=== PATIENT | male | born 1960 | race Caucasian/White ===

== ENCOUNTER 2019-04-06 07:06 | Day surgery (SDC) | payer BC ==
[2019-04-06] MEDS ORDERED: Propofol 200 MG/20 ML SDV IV ONE (07:07)
[2019-04-06] MEDS ORDERED: Midazolam 1 MG/ML 2 ML SDV IV ONE (07:07)
[2019-04-06] MEDS ORDERED: Lactated Ringers 1,000 ML IV SCH (07:15)
--- NOTE | 2019-04-06 08:29 | PCM.SN ---
- Free Text/Narrative Note: pt examined and chart reviewed. There is non change to the H+P.
--- NOTE | 2019-04-06 09:01 | PCM.OPNOTE ---
- General Post-Op/Procedure Note Date of Surgery/Procedure: 04/06/19 Operative Procedure(s): c scope Findings: nl exam Pre Op Diagnosis: personal hx of colon polyps Post-Op Diagnosis: Same Anesthesia Technique: MAC Primary Surgeon: Macario Deleon Anesthesia Provider: Mariela Greene ([facility] CRNAS) Pathology: none Complications: None Condition: Good Free Text/Narrative:: see dictation
--- NOTE | 2019-04-06 16:20 | OR ---
DATE OF OPERATION: 04/06/2019 SURGEON: Macario Deleon MD PROCEDURE PERFORMED: Colonoscopy. PREOPERATIVE DIAGNOSIS: Personal history of colon polyps. POSTOPERATIVE DIAGNOSIS: Normal exam. INDICATIONS FOR PROCEDURE: This is a 58-year-old white male, presents for followup colonoscopy. He has a personal history of colon polyps. DESCRIPTION OF OPERATION: After an excellent IV sedation was administered, digital rectal exam was performed. No marked abnormality was noted. Flexible colonoscope was inserted and advanced to the cecum. Prep was excellent. The following findings were noted: Ascending colon, unremarkable. Transverse colon, unremarkable. Descending colon, unremarkable. Sigmoid and rectum, unremarkable. Colon was deflated. Scope was removed. The patient tolerated the procedure well. He was taken to recovery. RECOMMENDATIONS: Repeat scope in 10 years. /[id number] /MODL
== END 2019-04-06 09:35 | disposition home or self-care (01) ==
LOC: FB.SDS 07:06
PROVIDERS: ATTEND Surgery
DX: Z12.11 Encounter for screening for malignant neoplasm of colon (principal); Z86.010 Personal history of colon polyps; K21.9 Gastro-esophageal reflux disease without esophagitis; E78.2 Mixed hyperlipidemia; I10 Essential (primary) hypertension; E78.00 Pure hypercholesterolemia, unspecified; J45.20 Mild intermittent asthma, uncomplicated; G43.909 Migraine, unspecified, not intractable, without status migrainosus; F41.1 Generalized anxiety disorder; E66.9 Obesity, unspecified; Z68.34 Body mass index [BMI] 34.0-34.9, adult; Z79.52 Long term (current) use of systemic steroids; Z79.899 Other long term (current) drug therapy
CPT/HCPCS: 45378; J2250; J2704; J7120